=== PATIENT | male | born 1940 | race Caucasian/White ===

== ENCOUNTER 2020-04-15 21:49 | Emergency (ER) | payer MEDICARE ==
[~2020-04-15] VITALS: Ht 180.3 cm; Wt 140.6 kg
[2020-04-15 21:49] VITALS: BP_SYST 159
[2020-04-15] MEDS ORDERED: ONDANSETRON HCL 4 MG/2 ML VIAL IVP ONE (22:00)
[2020-04-15] MEDS ORDERED: MORPHINE 4 MG/ML INJ. SYRINGE IVP ONE (22:00)
[2020-04-15] MEDS ORDERED: NACL 0.9% 1,000 ML IV ONE (22:00)
[2020-04-15 22:51] LABS: BASOPHILS % (AUTO) 0.5 % (0.0-2.0); EOSINOPHILS # (AUTO) 0.1 K/uL (0.0-0.4); EOSINOPHILS % (AUTO) 1.3 % (0.0-4.0); HEMATOCRIT 38.9 % (36-54); LYMPHOCYTES # (AUTO) 1.1 K/uL (1.0-5.5); LYMPHOCYTES % (AUTO) 12.4 % (20.5-51.5); MEAN CORPUSCULAR HEMOGLOBIN 32 pg (27-31); MEAN CORPUSCULAR HGB CONC 33 % (32-36); MEAN CORPUSCULAR VOLUME 97 fL (79.0-98.0); MONOCYTES # (AUTO) 0.7 K/uL (0.0-1.0); MONOCYTES % (AUTO) 7.8 % (1.7-9.3); NEUTROPHILS # (AUTO) 6.7 K/uL (1.8-7.7); PLATELET COUNT (AUTO) 198 K/uL (130-430); RED BLOOD CELL COUNT(AUTO) 4.02 MIL/uL (4.2-6.2); RED CELL DISTRIBUTION WIDTH 13.8 % (9.0-15.0); WHITE BLOOD COUNT (AUTO) 8.6 K/uL (4.8-10.8)
[2020-04-15 23:06] LABS: ANION GAP 8 (5-15); CALCIUM 9.2 mg/dL (8.4-11.0); CHLORIDE 100 mmol/L (98-107); CREATININE 1.32 mg/dL (0.55-1.30); GLUCOSE 376 mg/dL (70-99); POTASSIUM 3.8 mmol/L (3.5-5.1); SODIUM SERUM 134 mmol/L (136-145); UREA NITROGEN, BLOOD 18 mg/dL (8-21)
[2020-04-15 23:11] LABS: ALANINE AMINOTRANSFERASE 21 U/L (12-78); ALBUMIN 3.1 g/dL (3.4-4.8); ASPARTATE AMINOTRANSFERASE 14 U/L (10-37); LIPASE 21 U/L (73-393); TOTAL BILIRUBIN 0.7 mg/dL (0.0-1.0)
[2020-04-15 23:14] LABS: PROTHROMBIN TIME 10.3 SECS (9.5-12.5)
[2020-04-15] MEDS ORDERED: LIDOCAINE VISCOUS 2%, 15 ML UDC MM ONE (23:45)
[2020-04-16 00:26] LABS: BILIRUBIN,URINE NEGATIVE (NEGATIVE); BLOOD, URINE NEGATIVE (NEGATIVE); CLARITY/URINE CLEAR (CLEAR); COLOR,URINE YELLOW (YELLOW); GLUCOSE,URINE 2+ (NEGATIVE); KETONES,URINE NEGATIVE (NEGATIVE); LEUKOCYTE ESTERASE ,URINE NEGATIVE (NEGATIVE); NITRITE, URINE NEGATIVE (NEGATIVE); PROTEIN URINE NEGATIVE (NEGATIVE); UROBILINOGEN,URINE 0.2 (0.2-1.0)
[2020-04-16 00:54] LABS: BACTERIA,URINE FEW /HPF (None Seen); RBC,URINE 0-3 /HPF (0-3); WBC,URINE 0-3 /HPF (0-3)
[2020-04-16] MEDS ORDERED: INSULIN REGULAR, HUMAN 10 UNITS/0.1 ML INJ IVP ONE (01:30)
[2020-04-16] MEDS ORDERED: LIDOCAINE VISCOUS 2%, 15 ML UDC MM ONE (01:45)
[2020-04-16] MEDS ORDERED: LIDOCAINE VISCOUS 2%, 15 ML UDC ONE (02:04)
[2020-04-16 03:00] VITALS: BP_SYST 159
== END 2020-04-16 03:00 | disposition home or self-care (01) ==
LOC: SED 21:49
DX: R33.9 Retention of urine, unspecified (principal); K80.20 Calculus of gallbladder without cholecystitis without obstruction; D64.9 Anemia, unspecified; I10 Essential (primary) hypertension; E11.9 Type 2 diabetes mellitus without complications
CPT/HCPCS: 36415; 51702; 74176; 80053; 81000; 83690; 85025; 85610; 85730; 96372; 96374; 96375; 99285; J1815; J2001; J2270; J2405; J7030; 99284

== ENCOUNTER 2020-05-31 18:13 | Emergency (ER) | payer MEDICARE ==
[~2020-05-31] VITALS: Ht 180.3 cm; Wt 136.1 kg
[2020-05-31 18:16] VITALS: BP_SYST 166
--- NOTE | 2020-05-31 18:16 | NUR ---
Patient to ER bed 03 to gown for evaluation. Side rails up. Report given to JAMIE Ewing
--- NOTE | 2020-05-31 18:19 | NUR ---
Patient brought in complaining of blocked catheter since 1500 today with some bladder pressure. PAin 6/10. No other complaints/injuries per patient or as noted. Will continue to monitor.
--- NOTE | 2020-05-31 18:30 | NUR ---
ER at bedside examining patient.
[2020-05-31] MEDS ORDERED: NS 500 ML IV ONE (19:00)
[2020-05-31 20:23] LABS: WHITE BLOOD COUNT (AUTO) 11.4 K/uL (4.8-10.8)
[2020-05-31 20:24] LABS: HEMATOCRIT 35.3 % (36-54); LYMPHOCYTES % (AUTO) 12.8 % (20.5-51.5); MEAN CORPUSCULAR HEMOGLOBIN 32 pg (27-31); MEAN CORPUSCULAR HGB CONC 34 % (32-36); MEAN CORPUSCULAR VOLUME 94 fL (79.0-98.0); NEUTROPHILS % (AUTO) 78.3 % (40.0-70.0); PLATELET COUNT (AUTO) 251 K/uL (130-430); RED BLOOD CELL COUNT(AUTO) 3.74 MIL/uL (4.2-6.2); RED CELL DISTRIBUTION WIDTH 43.3 % (9.0-15.0)
[2020-05-31 20:25] LABS: BASOPHILS % (AUTO) 0.3 % (0.0-2.0); EOSINOPHILS # (AUTO) 0.1 K/uL (0.0-0.4); EOSINOPHILS % (AUTO) 1.2 % (0.0-4.0); LYMPHOCYTES # (AUTO) 1.5 K/uL (1.0-5.5); MONOCYTES # (AUTO) 0.8 K/uL (0.0-1.0); MONOCYTES % (AUTO) 7.4 % (1.7-9.3); NEUTROPHILS # (AUTO) 8.9 K/uL (1.8-7.7)
[2020-05-31 20:29] LABS: BILIRUBIN,URINE 3+ (NEGATIVE); BLOOD, URINE 3+ (NEGATIVE); CLARITY/URINE TURBID (CLEAR); COLOR,URINE BROWN (YELLOW); LEUKOCYTE ESTERASE ,URINE 2+ (NEGATIVE); NITRITE, URINE POSITIVE (NEGATIVE); PROTEIN URINE 3+ (NEGATIVE)
[2020-05-31 20:30] LABS: ANION GAP 8 (5-15); CALCIUM 8.3 mg/dL (8.4-11.0); CHLORIDE 100 mmol/L (98-107); CREATININE 0.95 mg/dL (0.55-1.30); GLUCOSE 315 mg/dL (70-99); POTASSIUM 3.4 mmol/L (3.5-5.1); SODIUM SERUM 137 mmol/L (136-145); UREA NITROGEN, BLOOD 18 mg/dL (8-21)
[2020-05-31 20:35] LABS: INR 1.1 (0.80-1.20); PROTHROMBIN TIME 11.1 SECS (9.5-12.5)
[2020-05-31 20:41] LABS: KETONES,URINE NEGATIVE (NEGATIVE)
[2020-05-31 20:42] LABS: GLUCOSE,URINE NEGATIVE (NEGATIVE)
[2020-05-31 20:44] LABS: ALANINE AMINOTRANSFERASE 13 U/L (12-78); ALBUMIN 2.4 g/dL (3.4-4.8); ASPARTATE AMINOTRANSFERASE 16 U/L (10-37)
[2020-05-31] MEDS ORDERED: cefTRIAXone 1 GM IVPB PREMIX 50 ML IV ONE (20:45)
--- NOTE | 2020-05-31 22:01 | NUR ---
Patient given written and verbal discharge instructions and verbalizes understanding. ER MD discussed with patient the results and treatment provided. Patient in stable condition. ID arm band removed. IV catheter removed intact and dressing applied, no active bleeding. Rx of MACROBID given. Patient educated on pain management and to follow up with PMD. Pain Scale 0/10. Opportunity for questions provided and answered. Medication side effect fact sheet provided.
[2020-05-31 22:02] LABS: BACTERIA,URINE MODERATE /HPF (None Seen); MUCUS,URINE None Seen /LPF (None Seen); RBC,URINE >100 /HPF (0-3)
[2020-05-31 22:03] VITALS: BP_SYST 162
[2020-05-31 22:03] LABS: URINE AMORPHOUS PHOSPHATES 4+ /HPF (None Seen)
== END 2020-05-31 22:01 | disposition home or self-care (01) ==
LOC: SED 18:13
DX: N30.80 Other cystitis without hematuria (principal)
CPT/HCPCS: 36415; 80053; 81000; 85025; 85610; 85730; 87040; 87086; 96361; 96365; 99284; J0696; J7030

== ENCOUNTER 2020-08-27 08:55 | Emergency (ER) | payer MEDICARE ==
[~2020-08-27] VITALS: Ht 167.6 cm; Wt 104.3 kg
[2020-08-27 09:07] VITALS: BP_SYST 170
--- NOTE | 2020-08-27 09:10 | NUR ---
PLACED IN HALLWAY BED 2, V/S STABLE
--- NOTE | 2020-08-27 09:13 | NUR ---
ER DR. FERMIN AT THE BEDSIDE EVALUATING PT
--- NOTE | 2020-08-27 09:15 | NUR ---
PT BIBA FROM HOME WITH C/O PAIN AND "BLACK" COMING FROM HIS [facility] CATH. PT STATES HE HAS HAD THE CURRENT [facility] CATH X 1MONTH. HX OF PROSTATE CA. PT IS AAOX4, V/S STABLE.
--- NOTE | 2020-08-27 09:20 | NUR ---
OLD C[facility]A CATH REMOVED, BLEEDING NOTED FROM THE URETHRA AND MILKY, CLOUDY URINE DRAINING. PT TOLERATED WELL
--- NOTE | 2020-08-27 09:24 | NUR ---
# 16 FR Cabral catheter with use of sterile technique. Immediate return of 100 cc CLOUDY, MILKY urine noted. Bedside drainage bag placed below level of bladder. Urine sample collected and sent to lab. Pt tolerated procedure WELL. Patient arrived with cabral in place, changed due to standard of practice prior to admission. Patient unable to toilet self.
--- NOTE | 2020-08-27 09:25 | NUR ---
SPECIMEN COLLECTED FROM [facility] AND SENT TO LAB
[2020-08-27] MEDS ORDERED: NACL 0.9% 1,000 ML IV ONE ×2 (09:45→11:45)
[2020-08-27] MEDS ORDERED: cefTRIAXone 1 GM in D5W 50 ML IV ONE (09:45)
--- NOTE | 2020-08-27 09:45 | NUR ---
# 20 gauge angiocath placed to LAC. Use of asceptic technique. Opsite placed over site. Blood return noted. Blood for lab drawn from site. Flushed with 10 cc of normal saline. No evidence of infiltration noted. Patient tolerated well.
[2020-08-27 09:58] LABS: BASOPHILS % (AUTO) 0.4 % (0.0-2.0); EOSINOPHILS % (AUTO) 0.1 % (0.0-4.0); HEMATOCRIT 37.4 % (36-54); HEMOGLOBIN 12.2 g/dL (14.0-18.0); LYMPHOCYTES # (AUTO) 0.1 K/uL (1.0-5.5); LYMPHOCYTES % (AUTO) 1.5 % (20.5-51.5); MEAN CORPUSCULAR HEMOGLOBIN 30 pg (27-31); MEAN CORPUSCULAR HGB CONC 33 % (32-36); MEAN CORPUSCULAR VOLUME 93 fL (79.0-98.0); MONOCYTES % (AUTO) 0.9 % (1.7-9.3); NEUTROPHILS # (AUTO) 3.8 K/uL (1.8-7.7); NEUTROPHILS % (AUTO) 97.1 % (40.0-70.0); PLATELET COUNT (AUTO) 219 K/uL (130-430); RED BLOOD CELL COUNT(AUTO) 4.03 MIL/uL (4.2-6.2); WHITE BLOOD COUNT (AUTO) 3.9 K/uL (4.8-10.8)
[2020-08-27] MEDS ORDERED: cefTRIAXone 1 GM VIAL ONE (10:02)
[2020-08-27 10:18] LABS: INR 1.3 (0.80-1.20); PROTHROMBIN TIME 13.7 SECS (9.5-12.5)
[2020-08-27 10:20] LABS: ANION GAP 17 (5-15); CALCIUM 8.3 mg/dL (8.4-11.0); CHLORIDE 98 mmol/L (98-107); CREATININE 2.03 mg/dL (0.55-1.30); SODIUM SERUM 136 mmol/L (136-145); UREA NITROGEN, BLOOD 32 mg/dL (8-21)
[2020-08-27 10:27] LABS: ALANINE AMINOTRANSFERASE 12 U/L (12-78); ALBUMIN 2.2 g/dL (3.4-4.8); ASPARTATE AMINOTRANSFERASE 15 U/L (10-37); BILIRUBIN,DIRECT 0.6 mg/dL (0.0-0.3); TOTAL BILIRUBIN 1.2 mg/dL (0.0-1.0)
[2020-08-27 10:29] LABS: GLUCOSE 515 mg/dL (70-99)
[2020-08-27 10:36] LABS: BILIRUBIN,URINE NEGATIVE (NEGATIVE); BLOOD, URINE 3+ (NEGATIVE); CLARITY/URINE CLOUDY (CLEAR); GLUCOSE,URINE 1+ (NEGATIVE); KETONES,URINE TRACE (NEGATIVE); LEUKOCYTE ESTERASE ,URINE 2+ (NEGATIVE); NITRITE, URINE NEGATIVE (NEGATIVE); PROTEIN URINE 2+ (NEGATIVE); UROBILINOGEN,URINE 0.2 (0.2-1.0)
[2020-08-27 10:40] LABS: COLOR,URINE YELLOW (YELLOW)
[2020-08-27] MEDS ORDERED: INSULIN NPH/REGULAR 70-30, 100 UNITS/ML, 10 ML VIAL SUBCUT ONE (10:45)
[2020-08-27 10:53] LABS: BACTERIA,URINE MANY /HPF (None Seen); MUCUS,URINE 1+ /LPF (None Seen); RBC,URINE >100 /HPF (0-3); WBC,URINE 80-100 /HPF (0-3)
[2020-08-27] MEDS ORDERED: INSULIN NPH/REGULAR 70-30, 100 UNITS/ML, 10 ML VIAL ONE (11:09)
--- NOTE | 2020-08-27 12:12 | NUR ---
Patient resting quietly. No acute distress noted. Vital signs within normal range.
[2020-08-27 15:25] LABS: ANION GAP 11 (5-15); CALCIUM 7.9 mg/dL (8.4-11.0); CHLORIDE 102 mmol/L (98-107); SODIUM SERUM 138 mmol/L (136-145); UREA NITROGEN, BLOOD 34 mg/dL (8-21)
[2020-08-27 15:32] LABS: GLUCOSE 415 mg/dL (70-99)
[2020-08-27 16:23] VITALS: BP_SYST 165
--- NOTE | 2020-08-27 16:24 | NUR ---
Patient given written and verbal discharge instructions and verbalizes understanding. ER MD discussed with patient the results and treatment provided. Patient in stable condition. ID arm band removed. Rx of Cefdinir given. Patient educated on pain management and to follow up with PMD. Pain Scale 0/10. Opportunity for questions provided and answered. Medication side effect fact sheet provided.
--- NOTE | 2020-08-29 15:01 | NUR ---
RECEIVED +URINE CULTURE FROM LAB, DISCUSSED CASE WITH DR FERMIN, DR VERNON ATTEMPTED TO CALL PT AND LEFT 2 MESSAGES.
== END 2020-08-27 16:23 | disposition home or self-care (01) ==
LOC: SED 08:55
DX: N39.0 Urinary tract infection, site not specified (principal); E86.0 Dehydration; E11.65 Type 2 diabetes mellitus with hyperglycemia
CPT/HCPCS: 36415; 51702; 80048; 80076; 81000; 85025; 85610; 87040; 87086; 96361; 96365; 96372; 99284; J0696; J1815; J7030

== ENCOUNTER 2020-08-29 16:44 | Inpatient (IN) | payer MEDICARE, SELFPAY ==
[~2020-08-29] VITALS: Ht 177.8 cm; Wt 141.7 kg
[2020-08-29 16:44] VITALS: BP_SYST 149
[2020-08-29] MEDS ORDERED: MEROPENEM 500 MG in NS 50 ML IV ONE (17:00)
[2020-08-29] MEDS ORDERED: NACL 0.9% 1,000 ML IV ONE ×3 (17:00→20:00)
[2020-08-29] MEDS ORDERED: MEROPENEM 500 MG VIAL IV ONE (17:40)
[2020-08-29 17:52] LABS: BASOPHILS % (AUTO) 0.2 % (0.0-2.0); EOSINOPHILS # (AUTO) 0.1 K/uL (0.0-0.4); EOSINOPHILS % (AUTO) 0.8 % (0.0-4.0); HEMATOCRIT 36.4 % (36-54); HEMOGLOBIN 11.8 g/dL (14.0-18.0); LYMPHOCYTES # (AUTO) 0.3 K/uL (1.0-5.5); MEAN CORPUSCULAR HEMOGLOBIN 30 pg (27-31); MEAN CORPUSCULAR HGB CONC 33 % (32-36); MEAN CORPUSCULAR VOLUME 93 fL (79.0-98.0); MONOCYTES # (AUTO) 0.8 K/uL (0.0-1.0); MONOCYTES % (AUTO) 4.8 % (1.7-9.3); NEUTROPHILS % (AUTO) 92.2 % (40.0-70.0); PLATELET COUNT (AUTO) 178 K/uL (130-430); RED BLOOD CELL COUNT(AUTO) 3.93 MIL/uL (4.2-6.2); RED CELL DISTRIBUTION WIDTH 15.5 % (9.0-15.0); WHITE BLOOD COUNT (AUTO) 16.2 K/uL (4.8-10.8)
[2020-08-29 18:08] LABS: ANION GAP 13 (5-15); CALCIUM 8.2 mg/dL (8.4-11.0); CHLORIDE 100 mmol/L (98-107); CREATININE 1.69 mg/dL (0.55-1.30); POTASSIUM 3.9 mmol/L (3.5-5.1); SODIUM SERUM 137 mmol/L (136-145); UREA NITROGEN, BLOOD 40 mg/dL (8-21)
[2020-08-29 18:13] LABS: GLUCOSE 467 mg/dL (70-99)
[2020-08-29] MEDS ORDERED: D5/0.45 NS 1,000 ML IV ONE (20:30)
[2020-08-29] MEDS ORDERED: ONDANSETRON HCL 4 MG/2 ML VIAL IVP PRN (23:00)
[2020-08-29] MEDS ORDERED: ACETAMINOPHEN 325 MG TABLET PO PRN (23:00)
[2020-08-29] MEDS ORDERED: LORazepam 2 MG/ML VIAL IVP PRN (23:00)
[2020-08-29] MEDS ORDERED: NALOXONE HCL 0.4 MG/ML AMP (NARCAN) IVP PRN ×2 (23:00)
[2020-08-29] MEDS ORDERED: HYDROcodone/ACETAMIN 10-325 MG TAB PO PRN (23:00)
[2020-08-29] MEDS ORDERED: HYDROcodone/ACETAMIN 5-325 MG TAB (NORCO/ VICODIN) PO PRN (23:00)
[2020-08-29] MEDS ORDERED: *HEPARIN PER PHARMACY XX ONE (23:00)
[2020-08-29] MEDS ORDERED: HEPARIN SODIUM,PORCINE 2000 UNITS/0.4 ML BOLUS IVP PRN (23:15)
[2020-08-29] MEDS ORDERED: HEPARIN SODIUM,PORCINE 3000 UNITS/0.6 ML BOLUS IVP PRN (23:15)
[2020-08-29] MEDS ORDERED: HEPARIN SODIUM,PORCINE 5,000 UNITS/ML VIAL IV ONE (23:30)
[2020-08-30] MEDS: MEROPENEM 500 MG in NS 50 ML IV SCH ×2 (00:40→09:30)
[2020-08-30] MEDS ORDERED: DILTIAZEM HCL 25 MG/5 ML VIAL IVP ONE (00:45)
[2020-08-30] MEDS: INSULIN REGULAR, HUMAN 100 UNITS/ML, 10 ML VIAL (humuLIN R) SUBCUT PRN ×6 (00:46→21:09)
[2020-08-30] MEDS ORDERED: DILTIAZEM HCL 125 MG/25 ML VIAL IV ONE ×2 (00:57→19:50)
[2020-08-30 01:18] LABS: INR 1.2 (0.80-1.20); PROTHROMBIN TIME 11.9 SECS (9.5-12.5)
[2020-08-30] MEDS: HEPARIN 25,000 UNITS in 250 ML PREMIX IV PRN (01:37)
[2020-08-30] MEDS ORDERED: INSULIN REGULAR, HUMAN 10 UNITS/0.1 ML INJ ONE ×3 (04:34→21:02)
[2020-08-30 07:10] LABS: HEMATOCRIT 34.7 % (36-54); HEMOGLOBIN 11.4 g/dL (14.0-18.0); MEAN CORPUSCULAR HEMOGLOBIN 30 pg (27-31); MEAN CORPUSCULAR HGB CONC 33 % (32-36); MEAN CORPUSCULAR VOLUME 92 fL (79.0-98.0); PLATELET COUNT (AUTO) 148 K/uL (130-430); RED BLOOD CELL COUNT(AUTO) 3.79 MIL/uL (4.2-6.2); RED CELL DISTRIBUTION WIDTH 15.5 % (9.0-15.0); WHITE BLOOD COUNT (AUTO) 8.3 K/uL (4.8-10.8)
[2020-08-30 07:47] LABS: ALANINE AMINOTRANSFERASE 15 U/L (12-78); ALBUMIN 1.4 g/dL (3.4-4.8); ANION GAP 11 (5-15); ASPARTATE AMINOTRANSFERASE 24 U/L (10-37); CALCIUM 7.9 mg/dL (8.4-11.0); CHLORIDE 105 mmol/L (98-107); GLUCOSE 387 mg/dL (70-99); PHOSPHORUS 1.8 mg/dL (2.7-4.5); SODIUM SERUM 140 mmol/L (136-145); TOTAL BILIRUBIN 0.7 mg/dL (0.0-1.0); UREA NITROGEN, BLOOD 40 mg/dL (8-21)
[2020-08-30] MEDS ORDERED: D5W 1,000 ML IV PRN (08:00)
[2020-08-30] MEDS ORDERED: DEXTROSE 50%-WATER 50 ML DISP.SYRIN IVP PRN (08:00)
[2020-08-30] MEDS ORDERED: GLUCOSE (DEXTROSE) ORAL GEL -Adults PO PRN (08:00)
[2020-08-30] MEDS ORDERED: ONDANSETRON HCL 4 MG/2 ML VIAL IVP PRN (09:00)
[2020-08-30] MEDS ORDERED: NALOXONE HCL 0.4 MG/ML AMP (NARCAN) IVP PRN ×2 (09:00)
[2020-08-30] MEDS ORDERED: HYDROcodone/ACETAMIN 10-325 MG TAB PO PRN (09:00)
[2020-08-30] MEDS ORDERED: HYDROcodone/ACETAMIN 5-325 MG TAB (NORCO/ VICODIN) PO PRN (09:00)
[2020-08-30] MEDS ORDERED: LORazepam 2 MG/ML VIAL IVP PRN (09:00)
[2020-08-30] MEDS ORDERED: ACETAMINOPHEN 325 MG TABLET PO PRN (09:00)
[2020-08-30 09:38] LABS: C-REACTIVE PROTEIN QUANT 51.1 mg/dL (0-0.5)
[2020-08-30] MEDS: KCL 20 mEq in D5/0.45NS 1000mL 1,000 ML IV SCH ×2 (10:30→20:58)
[2020-08-30] MEDS ORDERED: DIGOXIN 0.5 MG/2 ML AMP IVP ONE (10:45)
[2020-08-30 12:07] LABS: ERYTHROCYTE SEDIMENTATION RATE 92 MM/HR (0-15)
[2020-08-30] MEDS ORDERED: MEROPENEM 500 MG in NS 50 ML IV SCH (14:00)
[2020-08-30 14:03] LABS: BAND % (MANUAL) 9 % (0-6); BASOPHILS % (MANUAL) 0 % (0-2); EOSINOPHILS % (MANUAL) 0 % (0-7); LYMPHOCYTES % (MANUAL) 2 % (20-46); MONOCYTES % (MANUAL) 1 % (0-11)
[2020-08-30 19:00] VITALS: BP_SYST 158
[2020-08-30 20:00] VITALS: BP_SYST 154
[2020-08-30] MEDS: CEFTAZIDIME/AVIBACTAM 0.94 GM in NS 100 ML IV SCH (20:51)
[2020-08-30 21:00] VITALS: BP_SYST 170
[2020-08-30] MEDS ORDERED: INSULIN GLARGINE 100 UNITS/ML 10 ML VIAL SUBCUT ONE (21:30)
[2020-08-30 22:00] VITALS: BP_SYST 143
[2020-08-30 23:00] VITALS: BP_SYST 157
[2020-08-31] VITALS (8 sets, daily range): BP systolic 135–166
[2020-08-31] MEDS: HEPARIN 25,000 UNITS in 250 ML PREMIX IV PRN (03:10)
[2020-08-31 05:39] LABS: BASOPHILS # (AUTO) 0.1 K/uL (0.0-0.2); EOSINOPHILS # (AUTO) 0.2 K/uL (0.0-0.4); MONOCYTES # (AUTO) 0.9 K/uL (0.0-1.0)
[2020-08-31 05:46] LABS: LYMPHOCYTES # (AUTO) 0.8 K/uL (1.0-5.5); PLATELET COUNT (AUTO) 148 K/uL (130-430)
[2020-08-31] MEDS: KCL 20 mEq in D5/0.45NS 1000mL 1,000 ML IV SCH (05:47)
[2020-08-31 05:54] LABS: BASOPHILS % (AUTO) 0.7 % (0.0-2.0); EOSINOPHILS % (AUTO) 0.9 % (0.0-4.0); HEMOGLOBIN 10.3 g/dL (14.0-18.0); LYMPHOCYTES % (AUTO) 4.9 % (20.5-51.5); MEAN CORPUSCULAR HEMOGLOBIN 30 pg (27-31); MEAN CORPUSCULAR HGB CONC 33 % (32-36); MEAN CORPUSCULAR VOLUME 91 fL (79.0-98.0); MONOCYTES % (AUTO) 5.4 % (1.7-9.3); NEUTROPHILS # (AUTO) 14.9 K/uL (1.8-7.7); NEUTROPHILS % (AUTO) 88.1 % (40.0-70.0); RED BLOOD CELL COUNT(AUTO) 3.39 MIL/uL (4.2-6.2); RED CELL DISTRIBUTION WIDTH 15.1 % (9.0-15.0)
[2020-08-31] MEDS: INSULIN REGULAR, HUMAN 100 UNITS/ML, 10 ML VIAL (humuLIN R) SUBCUT PRN ×4 (07:23→23:23)
[2020-08-31 07:29] LABS: ALANINE AMINOTRANSFERASE 22 U/L (12-78); ALBUMIN 1.2 g/dL (3.4-4.8); ANION GAP 10 (5-15); ASPARTATE AMINOTRANSFERASE 30 U/L (10-37); CALCIUM 8.3 mg/dL (8.4-11.0); CHLORIDE 102 mmol/L (98-107); CREATININE 1.36 mg/dL (0.55-1.30); PHOSPHORUS 2.3 mg/dL (2.7-4.5); POTASSIUM 3.4 mmol/L (3.5-5.1); SODIUM SERUM 135 mmol/L (136-145); TOTAL BILIRUBIN 0.5 mg/dL (0.0-1.0); UREA NITROGEN, BLOOD 39 mg/dL (8-21)
[2020-08-31 07:35] LABS: GLUCOSE 423 mg/dL (70-99)
[2020-08-31] MEDS: KCL 20 mEq in 100 mL (PREMIX) 100 ML IV SCH ×2 (09:00→11:00)
[2020-08-31] MEDS: INSULIN NPH 100 UNITS/ML 10 ML VIAL SUBCUT SCH ×2 (10:45→23:22)
[2020-08-31] MEDS: INSULIN GLARGINE 100 UNITS/ML 10 ML VIAL SUBCUT SCH (10:45)
[2020-08-31] MEDS: CEFTAZIDIME/AVIBACTAM 0.94 GM in NS 100 ML IV SCH ×2 (12:00→23:13)
[2020-08-31] MEDS: METOPROLOL TARTRATE 25 MG TABLET PO SCH ×2 (14:19→23:13)
[2020-08-31] MEDS: DILTIAZEM HCL 30 MG TABLET PO SCH (17:26)
[2020-08-31] MEDS ORDERED: POTASSIUM CHLORIDE 20 MEQ TAB.PRT.SR PO ONE (18:15)
[2020-08-31] MEDS: ATORVASTATIN 20 MG TABLET PO SCH (23:13)
[2020-09-01] VITALS: BP_SYST 166
[2020-09-01] MEDS: HEPARIN 25,000 UNITS in 250 ML PREMIX IV PRN ×2 (01:08→10:04)
[2020-09-01] MEDS: DILTIAZEM HCL 30 MG TABLET PO SCH ×3 (05:31→21:49)
[2020-09-01] MEDS: KCL 20 mEq in D5/0.45NS 1000mL 1,000 ML IV SCH ×2 (05:32→13:29)
[2020-09-01] MEDS: INSULIN REGULAR, HUMAN 100 UNITS/ML, 10 ML VIAL (humuLIN R) SUBCUT PRN ×3 (06:16→17:49)
[2020-09-01 06:33] LABS: BASOPHILS # (AUTO) 0.1 K/uL (0.0-0.2); BASOPHILS % (AUTO) 0.3 % (0.0-2.0); EOSINOPHILS # (AUTO) 0.3 K/uL (0.0-0.4); EOSINOPHILS % (AUTO) 1.4 % (0.0-4.0); HEMATOCRIT 34.3 % (36-54); HEMOGLOBIN 11.2 g/dL (14.0-18.0); LYMPHOCYTES # (AUTO) 1.4 K/uL (1.0-5.5); LYMPHOCYTES % (AUTO) 6.9 % (20.5-51.5); MEAN CORPUSCULAR HEMOGLOBIN 30 pg (27-31); MEAN CORPUSCULAR HGB CONC 33 % (32-36); MEAN CORPUSCULAR VOLUME 91 fL (79.0-98.0); MONOCYTES # (AUTO) 1.4 K/uL (0.0-1.0); MONOCYTES % (AUTO) 6.5 % (1.7-9.3); NEUTROPHILS # (AUTO) 17.5 K/uL (1.8-7.7); NEUTROPHILS % (AUTO) 84.9 % (40.0-70.0); PLATELET COUNT (AUTO) 177 K/uL (130-430); RED BLOOD CELL COUNT(AUTO) 3.78 MIL/uL (4.2-6.2); RED CELL DISTRIBUTION WIDTH 15.2 % (9.0-15.0); WHITE BLOOD COUNT (AUTO) 20.7 K/uL (4.8-10.8)
[2020-09-01 08:45] VITALS: BP_SYST 148
[2020-09-01 08:48] LABS: ANION GAP 8 (5-15); CALCIUM 8.5 mg/dL (8.4-11.0); CHLORIDE 103 mmol/L (98-107); CREATININE 1.34 mg/dL (0.55-1.30); GLUCOSE 193 mg/dL (70-99); PHOSPHORUS 2.9 mg/dL (2.7-4.5); POTASSIUM 3.8 mmol/L (3.5-5.1); SODIUM SERUM 137 mmol/L (136-145); UREA NITROGEN, BLOOD 30 mg/dL (8-21)
[2020-09-01] MEDS: CEFTAZIDIME/AVIBACTAM 0.94 GM in NS 100 ML IV SCH ×2 (09:42→21:56)
[2020-09-01] MEDS: METOPROLOL TARTRATE 25 MG TABLET PO SCH ×2 (09:46→21:48)
[2020-09-01 10:04] LABS: ERYTHROCYTE SEDIMENTATION RATE 90 MM/HR (0-15)
[2020-09-01] MEDS: INSULIN NPH 100 UNITS/ML 10 ML VIAL SUBCUT SCH ×2 (10:04→22:07)
[2020-09-01] MEDS: INSULIN GLARGINE 100 UNITS/ML 10 ML VIAL SUBCUT SCH (10:33)
[2020-09-01 12:00] VITALS: BP_SYST 154
[2020-09-01 16:00] VITALS: BP_SYST 153
[2020-09-01] MEDS: ATORVASTATIN 20 MG TABLET PO SCH (21:50)
[2020-09-01] MEDS: APIXABAN 2.5 MG TABLET PO SCH (22:08)
[2020-09-01 22:48] VITALS: BP_SYST 147
[2020-09-01 22:57] VITALS: BP_SYST 147
[2020-09-02] MEDS: KCL 20 mEq in D5/0.45NS 1000mL 1,000 ML IV SCH ×2 (03:39→17:30)
[2020-09-02] MEDS: DILTIAZEM HCL 30 MG TABLET PO SCH ×3 (06:10→23:51)
[2020-09-02] MEDS: INSULIN REGULAR, HUMAN 100 UNITS/ML, 10 ML VIAL (humuLIN R) SUBCUT PRN ×3 (06:17→16:55)
[2020-09-02 07:13] LABS: BASOPHILS % (AUTO) 0.1 % (0.0-2.0); EOSINOPHILS # (AUTO) 0.3 K/uL (0.0-0.4); EOSINOPHILS % (AUTO) 1.5 % (0.0-4.0); HEMOGLOBIN 10.8 g/dL (14.0-18.0); LYMPHOCYTES # (AUTO) 1.1 K/uL (1.0-5.5); LYMPHOCYTES % (AUTO) 6.4 % (20.5-51.5); MEAN CORPUSCULAR HEMOGLOBIN 30 pg (27-31); MEAN CORPUSCULAR HGB CONC 33 % (32-36); MEAN CORPUSCULAR VOLUME 90 fL (79.0-98.0); MONOCYTES # (AUTO) 1.2 K/uL (0.0-1.0); MONOCYTES % (AUTO) 7.4 % (1.7-9.3); NEUTROPHILS # (AUTO) 14.2 K/uL (1.8-7.7); NEUTROPHILS % (AUTO) 84.6 % (40.0-70.0); PLATELET COUNT (AUTO) 175 K/uL (130-430); RED BLOOD CELL COUNT(AUTO) 3.65 MIL/uL (4.2-6.2); RED CELL DISTRIBUTION WIDTH 15.2 % (9.0-15.0); WHITE BLOOD COUNT (AUTO) 16.8 K/uL (4.8-10.8)
[2020-09-02 08:00] VITALS: BP_SYST 141
[2020-09-02 08:07] LABS: ANION GAP 9 (5-15); CALCIUM 7.9 mg/dL (8.4-11.0); CHLORIDE 105 mmol/L (98-107); GLUCOSE 214 mg/dL (70-99); POTASSIUM 3.6 mmol/L (3.5-5.1); SODIUM SERUM 139 mmol/L (136-145); UREA NITROGEN, BLOOD 25 mg/dL (8-21)
[2020-09-02 08:24] LABS: CREATININE 1.01 mg/dL (0.55-1.30)
[2020-09-02 08:44] LABS: PHOSPHORUS 2.9 mg/dL (2.7-4.5)
[2020-09-02 09:23] LABS: C-REACTIVE PROTEIN QUANT 25.2 mg/dL (0-0.5)
[2020-09-02] MEDS: CEFTAZIDIME/AVIBACTAM 0.94 GM in NS 100 ML IV SCH ×2 (09:50→23:54)
[2020-09-02] MEDS: METOPROLOL TARTRATE 25 MG TABLET PO SCH ×2 (09:51→23:57)
[2020-09-02] MEDS: APIXABAN 2.5 MG TABLET PO SCH ×2 (09:57→23:53)
[2020-09-02] MEDS: INSULIN GLARGINE 100 UNITS/ML 10 ML VIAL SUBCUT SCH (09:58)
[2020-09-02] MEDS: INSULIN NPH 100 UNITS/ML 10 ML VIAL SUBCUT SCH (09:59)
[2020-09-02 12:00] VITALS: BP_SYST 148
[2020-09-02 12:04] LABS: ERYTHROCYTE SEDIMENTATION RATE 94 MM/HR (0-15)
[2020-09-02 15:47] VITALS: BP_SYST 155
[2020-09-02 20:00] VITALS: BP_SYST 145
[2020-09-02] MEDS: ATORVASTATIN 20 MG TABLET PO SCH (23:54)
[2020-09-03] MEDS: INSULIN NPH 100 UNITS/ML 10 ML VIAL SUBCUT SCH (00:04)
[2020-09-03 06:27] LABS: BASOPHILS % (AUTO) 0.3 % (0.0-2.0); EOSINOPHILS # (AUTO) 0.3 K/uL (0.0-0.4); EOSINOPHILS % (AUTO) 1.5 % (0.0-4.0); HEMATOCRIT 31.9 % (36-54); HEMOGLOBIN 10.5 g/dL (14.0-18.0); LYMPHOCYTES # (AUTO) 1.1 K/uL (1.0-5.5); LYMPHOCYTES % (AUTO) 5.9 % (20.5-51.5); MEAN CORPUSCULAR HEMOGLOBIN 30 pg (27-31); MEAN CORPUSCULAR HGB CONC 33 % (32-36); MEAN CORPUSCULAR VOLUME 90 fL (79.0-98.0); MONOCYTES # (AUTO) 1.2 K/uL (0.0-1.0); MONOCYTES % (AUTO) 6.3 % (1.7-9.3); NEUTROPHILS # (AUTO) 16.7 K/uL (1.8-7.7); PLATELET COUNT (AUTO) 250 K/uL (130-430); RED BLOOD CELL COUNT(AUTO) 3.55 MIL/uL (4.2-6.2); RED CELL DISTRIBUTION WIDTH 15.5 % (9.0-15.0); WHITE BLOOD COUNT (AUTO) 19.4 K/uL (4.8-10.8)
[2020-09-03] MEDS: KCL 20 mEq in D5/0.45NS 1000mL 1,000 ML IV SCH (07:11)
[2020-09-03 07:44] LABS: ALANINE AMINOTRANSFERASE 28 U/L (12-78); ALBUMIN 1.2 g/dL (3.4-4.8); ANION GAP 8 (5-15); ASPARTATE AMINOTRANSFERASE 55 U/L (10-37); CALCIUM 8.1 mg/dL (8.4-11.0); CHLORIDE 105 mmol/L (98-107); CREATININE 1.01 mg/dL (0.55-1.30); GLUCOSE 148 mg/dL (70-99); PHOSPHORUS 3.1 mg/dL (2.7-4.5); POTASSIUM 3.4 mmol/L (3.5-5.1); SODIUM SERUM 140 mmol/L (136-145); TOTAL BILIRUBIN 0.9 mg/dL (0.0-1.0); UREA NITROGEN, BLOOD 18 mg/dL (8-21)
[2020-09-03] MEDS: DILTIAZEM HCL 30 MG TABLET PO SCH ×3 (07:46→21:59)
[2020-09-03 08:08] LABS: ERYTHROCYTE SEDIMENTATION RATE 98 MM/HR (0-15)
[2020-09-03 08:11] VITALS: BP_SYST 163
[2020-09-03] MEDS: CEFTAZIDIME/AVIBACTAM 0.94 GM in NS 100 ML IV SCH (08:27)
[2020-09-03] MEDS: METOPROLOL TARTRATE 25 MG TABLET PO SCH (08:28)
[2020-09-03] MEDS: APIXABAN 2.5 MG TABLET PO SCH ×2 (08:28→21:53)
[2020-09-03] MEDS: INSULIN GLARGINE 100 UNITS/ML 10 ML VIAL SUBCUT SCH (08:30)
[2020-09-03 12:00] VITALS: BP_SYST 158
[2020-09-03] MEDS: ERTAPENEM SODIUM 1 GM in NS 50 ML IV SCH (12:57)
[2020-09-03] MEDS: NORMAL SALINE 5 ML DISP.SYRIN IVF SCH ×2 (14:09→22:00)
[2020-09-03 16:00] VITALS: BP_SYST 151
[2020-09-03 20:00] VITALS: BP_SYST 158
[2020-09-03] MEDS: METOPROLOL TARTRATE 50 MG TABLET PO SCH (21:51)
[2020-09-03] MEDS: ATORVASTATIN 20 MG TABLET PO SCH (21:52)
[2020-09-04] VITALS (7 sets, daily range): BP systolic 141–159
[2020-09-04] MEDS: DILTIAZEM HCL 30 MG TABLET PO SCH ×3 (05:34→23:25)
[2020-09-04] MEDS: NORMAL SALINE 5 ML DISP.SYRIN IVF SCH ×3 (06:00→23:26)
[2020-09-04 07:15] LABS: BASOPHILS # (AUTO) 0.1 K/uL (0.0-0.2); BASOPHILS % (AUTO) 0.4 % (0.0-2.0); EOSINOPHILS # (AUTO) 0.3 K/uL (0.0-0.4); EOSINOPHILS % (AUTO) 1.6 % (0.0-4.0); HEMATOCRIT 31.3 % (36-54); HEMOGLOBIN 10.4 g/dL (14.0-18.0); LYMPHOCYTES # (AUTO) 1.1 K/uL (1.0-5.5); LYMPHOCYTES % (AUTO) 5.9 % (20.5-51.5); MEAN CORPUSCULAR HEMOGLOBIN 30 pg (27-31); MEAN CORPUSCULAR HGB CONC 33 % (32-36); MEAN CORPUSCULAR VOLUME 90 fL (79.0-98.0); MONOCYTES % (AUTO) 5.2 % (1.7-9.3); NEUTROPHILS # (AUTO) 16.1 K/uL (1.8-7.7); NEUTROPHILS % (AUTO) 86.9 % (40.0-70.0); PLATELET COUNT (AUTO) 321 K/uL (130-430); RED BLOOD CELL COUNT(AUTO) 3.48 MIL/uL (4.2-6.2); RED CELL DISTRIBUTION WIDTH 15.7 % (9.0-15.0); WHITE BLOOD COUNT (AUTO) 18.5 K/uL (4.8-10.8)
[2020-09-04 08:26] LABS: ANION GAP 5 (5-15); CALCIUM 7.3 mg/dL (8.4-11.0); CHLORIDE 104 mmol/L (98-107); CREATININE 0.82 mg/dL (0.55-1.30); GLUCOSE 89 mg/dL (70-99); POTASSIUM 3.2 mmol/L (3.5-5.1); SODIUM SERUM 136 mmol/L (136-145); UREA NITROGEN, BLOOD 12 mg/dL (8-21)
[2020-09-04 08:54] LABS: ERYTHROCYTE SEDIMENTATION RATE 106 MM/HR (0-15)
[2020-09-04] MEDS: INSULIN GLARGINE 100 UNITS/ML 10 ML VIAL SUBCUT SCH (09:13)
[2020-09-04] MEDS: METOPROLOL TARTRATE 50 MG TABLET PO SCH ×2 (09:16→20:42)
[2020-09-04] MEDS: APIXABAN 2.5 MG TABLET PO SCH ×2 (09:19→20:43)
[2020-09-04] MEDS: ERTAPENEM SODIUM 1 GM in NS 50 ML IV SCH (11:28)
[2020-09-04] MEDS: INSULIN REGULAR, HUMAN 100 UNITS/ML, 10 ML VIAL (humuLIN R) SUBCUT PRN (11:28)
[2020-09-04] MEDS: ATORVASTATIN 20 MG TABLET PO SCH (20:42)
[2020-09-05] VITALS (7 sets, daily range): BP systolic 144–159
[2020-09-05] MEDS: NORMAL SALINE 5 ML DISP.SYRIN IVF SCH ×3 (06:22→21:50)
[2020-09-05] MEDS: DILTIAZEM HCL 30 MG TABLET PO SCH ×3 (06:22→21:53)
[2020-09-05] MEDS: APIXABAN 2.5 MG TABLET PO SCH ×2 (08:30→21:52)
[2020-09-05] MEDS: INSULIN GLARGINE 100 UNITS/ML 10 ML VIAL SUBCUT SCH (08:34)
[2020-09-05] MEDS: METOPROLOL TARTRATE 50 MG TABLET PO SCH ×2 (08:35→21:50)
[2020-09-05 10:12] LABS: BASOPHILS # (AUTO) 0.1 K/uL (0.0-0.2); BASOPHILS % (AUTO) 0.8 % (0.0-2.0); EOSINOPHILS # (AUTO) 0.3 K/uL (0.0-0.4); EOSINOPHILS % (AUTO) 2.3 % (0.0-4.0); HEMATOCRIT 29.1 % (36-54); HEMOGLOBIN 9.5 g/dL (14.0-18.0); LYMPHOCYTES % (AUTO) 7.2 % (20.5-51.5); MEAN CORPUSCULAR HEMOGLOBIN 30 pg (27-31); MEAN CORPUSCULAR HGB CONC 33 % (32-36); MEAN CORPUSCULAR VOLUME 90 fL (79.0-98.0); MONOCYTES # (AUTO) 0.9 K/uL (0.0-1.0); MONOCYTES % (AUTO) 6.2 % (1.7-9.3); NEUTROPHILS % (AUTO) 83.5 % (40.0-70.0); PLATELET COUNT (AUTO) 407 K/uL (130-430); RED BLOOD CELL COUNT(AUTO) 3.22 MIL/uL (4.2-6.2); RED CELL DISTRIBUTION WIDTH 15.2 % (9.0-15.0); WHITE BLOOD COUNT (AUTO) 14.4 K/uL (4.8-10.8)
[2020-09-05 10:15] LABS: ANION GAP 7 (5-15); CALCIUM 7.2 mg/dL (8.4-11.0); CHLORIDE 101 mmol/L (98-107); CREATININE 0.92 mg/dL (0.55-1.30); FREE T4 (FREE THYROXINE) 0.8 ng/dL (0.6-1.6); GLUCOSE 239 mg/dL (70-99); PHOSPHORUS 3.3 mg/dL (2.7-4.5); POTASSIUM 3.4 mmol/L (3.5-5.1); SODIUM SERUM 137 mmol/L (136-145); THYROID STIMULATING HORMONE 2.41 uIu/mL (0.34-4.82); UREA NITROGEN, BLOOD 10 mg/dL (8-21)
[2020-09-05 10:49] LABS: ERYTHROCYTE SEDIMENTATION RATE 111 MM/HR (0-15)
[2020-09-05] MEDS: ALBUTEROL SULFATE 0.083% 2.5 MG/3 ML VIAL.NEB INH SCH ×4 (11:00→23:00)
[2020-09-05] MEDS: IPRATROPIUM BROM 0.5 MG/2.5 ML VIAL.NEB (ATROVENT) INH SCH ×4 (11:00→23:00)
[2020-09-05] MEDS: INSULIN REGULAR, HUMAN 100 UNITS/ML, 10 ML VIAL (humuLIN R) SUBCUT PRN ×2 (12:06→16:52)
[2020-09-05] MEDS: ERTAPENEM SODIUM 1 GM in NS 50 ML IV SCH (12:09)
[2020-09-05] MEDS: ATORVASTATIN 20 MG TABLET PO SCH (21:49)
[2020-09-06 00:29] VITALS: BP_SYST 153
[2020-09-06] MEDS: ALBUTEROL SULFATE 0.083% 2.5 MG/3 ML VIAL.NEB INH SCH ×6 (03:00→23:00)
[2020-09-06] MEDS: IPRATROPIUM BROM 0.5 MG/2.5 ML VIAL.NEB (ATROVENT) INH SCH ×6 (03:00→23:00)
[2020-09-06] MEDS: NORMAL SALINE 5 ML DISP.SYRIN IVF SCH ×3 (06:05→21:17)
[2020-09-06] MEDS: DILTIAZEM HCL 30 MG TABLET PO SCH ×3 (06:05→21:16)
[2020-09-06 07:00] LABS: BASOPHILS # (AUTO) 0.1 K/uL (0.0-0.2); BASOPHILS % (AUTO) 0.7 % (0.0-2.0); EOSINOPHILS # (AUTO) 0.3 K/uL (0.0-0.4); EOSINOPHILS % (AUTO) 2.5 % (0.0-4.0); HEMATOCRIT 34.1 % (36-54); LYMPHOCYTES % (AUTO) 7.1 % (20.5-51.5); MEAN CORPUSCULAR HEMOGLOBIN 29 pg (27-31); MEAN CORPUSCULAR HGB CONC 32 % (32-36); MEAN CORPUSCULAR VOLUME 91 fL (79.0-98.0); MONOCYTES # (AUTO) 0.9 K/uL (0.0-1.0); MONOCYTES % (AUTO) 6.3 % (1.7-9.3); NEUTROPHILS # (AUTO) 11.6 K/uL (1.8-7.7); NEUTROPHILS % (AUTO) 83.4 % (40.0-70.0); PLATELET COUNT (AUTO) 496 K/uL (130-430); RED BLOOD CELL COUNT(AUTO) 3.77 MIL/uL (4.2-6.2); RED CELL DISTRIBUTION WIDTH 15.6 % (9.0-15.0); WHITE BLOOD COUNT (AUTO) 13.9 K/uL (4.8-10.8)
[2020-09-06 07:15] LABS: ANION GAP 7 (5-15); CALCIUM 7.2 mg/dL (8.4-11.0); CHLORIDE 99 mmol/L (98-107); GLUCOSE 99 mg/dL (70-99); POTASSIUM 3.6 mmol/L (3.5-5.1); SODIUM SERUM 134 mmol/L (136-145); UREA NITROGEN, BLOOD 10 mg/dL (8-21)
[2020-09-06 08:15] VITALS: BP_SYST 148
[2020-09-06 08:19] LABS: C-REACTIVE PROTEIN QUANT 16.3 mg/dL (0-0.5)
[2020-09-06 09:36] LABS: ERYTHROCYTE SEDIMENTATION RATE 95 MM/HR (0-15)
[2020-09-06] MEDS: METOPROLOL TARTRATE 50 MG TABLET PO SCH ×2 (09:55→21:17)
[2020-09-06] MEDS: INSULIN GLARGINE 100 UNITS/ML 10 ML VIAL SUBCUT SCH (09:57)
[2020-09-06] MEDS: APIXABAN 2.5 MG TABLET PO SCH ×2 (09:58→21:16)
[2020-09-06] MEDS: ERTAPENEM SODIUM 1 GM in NS 50 ML IV SCH (11:46)
[2020-09-06 12:00] VITALS: BP_SYST 142
[2020-09-06 12:48] VITALS: BP_SYST 142
[2020-09-06 16:44] VITALS: BP_SYST 156
[2020-09-06 20:00] VITALS: BP_SYST 159
[2020-09-06] MEDS: ATORVASTATIN 20 MG TABLET PO SCH (21:17)
[2020-09-07 02:05] VITALS: BP_SYST 149
[2020-09-07] MEDS: ALBUTEROL SULFATE 0.083% 2.5 MG/3 ML VIAL.NEB INH SCH ×6 (03:00→23:00)
[2020-09-07] MEDS: IPRATROPIUM BROM 0.5 MG/2.5 ML VIAL.NEB (ATROVENT) INH SCH ×6 (03:00→23:00)
[2020-09-07] MEDS: NORMAL SALINE 5 ML DISP.SYRIN IVF SCH ×3 (06:16→21:00)
[2020-09-07] MEDS: DILTIAZEM HCL 30 MG TABLET PO SCH ×3 (06:16→21:02)
[2020-09-07 07:51] LABS: BASOPHILS # (AUTO) 0.1 K/uL (0.0-0.2); EOSINOPHILS # (AUTO) 0.3 K/uL (0.0-0.4); EOSINOPHILS % (AUTO) 2.3 % (0.0-4.0); HEMATOCRIT 29.1 % (36-54); HEMOGLOBIN 9.9 g/dL (14.0-18.0); LYMPHOCYTES # (AUTO) 1.4 K/uL (1.0-5.5); LYMPHOCYTES % (AUTO) 10.5 % (20.5-51.5); MEAN CORPUSCULAR HEMOGLOBIN 30 pg (27-31); MEAN CORPUSCULAR HGB CONC 34 % (32-36); MONOCYTES # (AUTO) 0.9 K/uL (0.0-1.0); MONOCYTES % (AUTO) 6.7 % (1.7-9.3); NEUTROPHILS # (AUTO) 10.8 K/uL (1.8-7.7); NEUTROPHILS % (AUTO) 79.5 % (40.0-70.0); PLATELET COUNT (AUTO) 566 K/uL (130-430); RED BLOOD CELL COUNT(AUTO) 3.27 MIL/uL (4.2-6.2); RED CELL DISTRIBUTION WIDTH 15.6 % (9.0-15.0); WHITE BLOOD COUNT (AUTO) 13.6 K/uL (4.8-10.8)
[2020-09-07 08:00] VITALS: BP_SYST 155
[2020-09-07 08:16] LABS: ALANINE AMINOTRANSFERASE 19 U/L (12-78); ANION GAP 3 (5-15); ASPARTATE AMINOTRANSFERASE 31 U/L (10-37); CALCIUM 7.2 mg/dL (8.4-11.0); CHLORIDE 101 mmol/L (98-107); GLUCOSE 82 mg/dL (70-99); PHOSPHORUS 3.3 mg/dL (2.7-4.5); POTASSIUM 3.6 mmol/L (3.5-5.1); SODIUM SERUM 134 mmol/L (136-145); TOTAL BILIRUBIN 0.4 mg/dL (0.0-1.0); UREA NITROGEN, BLOOD 9 mg/dL (8-21)
[2020-09-07 08:27] LABS: MEAN CORPUSCULAR VOLUME 89 fL (79.0-98.0)
[2020-09-07] MEDS: APIXABAN 2.5 MG TABLET PO SCH ×2 (08:37→21:05)
[2020-09-07] MEDS: METOPROLOL TARTRATE 50 MG TABLET PO SCH ×2 (08:39→21:03)
[2020-09-07] MEDS: INSULIN GLARGINE 100 UNITS/ML 10 ML VIAL SUBCUT SCH (08:41)
[2020-09-07 09:18] LABS: ERYTHROCYTE SEDIMENTATION RATE 102 MM/HR (0-15)
[2020-09-07 09:24] LABS: C-REACTIVE PROTEIN QUANT 15.4 mg/dL (0-0.5)
[2020-09-07] MEDS: ERTAPENEM SODIUM 1 GM in NS 50 ML IV SCH (11:50)
[2020-09-07] MEDS: INSULIN REGULAR, HUMAN 100 UNITS/ML, 10 ML VIAL (humuLIN R) SUBCUT PRN (11:52)
[2020-09-07 12:54] VITALS: BP_SYST 143
[2020-09-07 16:00] VITALS: BP_SYST 148
[2020-09-07] MEDS: ATORVASTATIN 20 MG TABLET PO SCH (21:02)
[2020-09-07 22:02] VITALS: BP_SYST 159
[2020-09-08] VITALS: BP_SYST 131
[2020-09-08] MEDS: IPRATROPIUM BROM 0.5 MG/2.5 ML VIAL.NEB (ATROVENT) INH SCH ×6 (03:00→23:00)
[2020-09-08] MEDS: ALBUTEROL SULFATE 0.083% 2.5 MG/3 ML VIAL.NEB INH SCH ×6 (03:00→23:00)
[2020-09-08] MEDS: NORMAL SALINE 5 ML DISP.SYRIN IVF SCH ×3 (05:57→21:01)
[2020-09-08] MEDS: DILTIAZEM HCL 30 MG TABLET PO SCH ×3 (06:48→21:29)
[2020-09-08 07:59] LABS: BASOPHILS # (AUTO) 0.1 K/uL (0.0-0.2); BASOPHILS % (AUTO) 0.5 % (0.0-2.0); EOSINOPHILS # (AUTO) 0.3 K/uL (0.0-0.4); EOSINOPHILS % (AUTO) 2.7 % (0.0-4.0); HEMATOCRIT 29.8 % (36-54); LYMPHOCYTES # (AUTO) 1.5 K/uL (1.0-5.5); LYMPHOCYTES % (AUTO) 12.3 % (20.5-51.5); MEAN CORPUSCULAR HEMOGLOBIN 30 pg (27-31); MEAN CORPUSCULAR HGB CONC 34 % (32-36); MEAN CORPUSCULAR VOLUME 89 fL (79.0-98.0); MONOCYTES # (AUTO) 0.9 K/uL (0.0-1.0); MONOCYTES % (AUTO) 7.7 % (1.7-9.3); NEUTROPHILS # (AUTO) 9.1 K/uL (1.8-7.7); NEUTROPHILS % (AUTO) 76.8 % (40.0-70.0); PLATELET COUNT (AUTO) 573 K/uL (130-430); RED BLOOD CELL COUNT(AUTO) 3.33 MIL/uL (4.2-6.2); RED CELL DISTRIBUTION WIDTH 15.4 % (9.0-15.0); WHITE BLOOD COUNT (AUTO) 11.9 K/uL (4.8-10.8)
[2020-09-08 08:00] VITALS: BP_SYST 150
[2020-09-08 08:12] LABS: ANION GAP 7 (5-15); CALCIUM 7.8 mg/dL (8.4-11.0); CHLORIDE 102 mmol/L (98-107); CREATININE 0.75 mg/dL (0.55-1.30); GLUCOSE 105 mg/dL (70-99); POTASSIUM 3.6 mmol/L (3.5-5.1); SODIUM SERUM 138 mmol/L (136-145); UREA NITROGEN, BLOOD 9 mg/dL (8-21)
[2020-09-08] MEDS: METOPROLOL TARTRATE 50 MG TABLET PO SCH ×2 (08:26→21:26)
[2020-09-08] MEDS: APIXABAN 2.5 MG TABLET PO SCH ×2 (08:28→21:27)
[2020-09-08] MEDS: INSULIN GLARGINE 100 UNITS/ML 10 ML VIAL SUBCUT SCH (08:31)
[2020-09-08 08:45] LABS: C-REACTIVE PROTEIN QUANT 14.6 mg/dL (0-0.5)
[2020-09-08 08:59] VITALS: BP_SYST 155
[2020-09-08 09:57] LABS: ERYTHROCYTE SEDIMENTATION RATE 102 MM/HR (0-15)
[2020-09-08] MEDS: ERTAPENEM SODIUM 1 GM in NS 50 ML IV SCH (10:45)
[2020-09-08] MEDS: INSULIN REGULAR, HUMAN 100 UNITS/ML, 10 ML VIAL (humuLIN R) SUBCUT PRN ×2 (10:48→21:28)
[2020-09-08 13:25] VITALS: BP_SYST 152
[2020-09-08 17:12] VITALS: BP_SYST 152
[2020-09-08] MEDS: ATORVASTATIN 20 MG TABLET PO SCH (21:26)
[2020-09-08 21:29] VITALS: BP_SYST 122
[2020-09-08] MEDS: hydrALAZINE HCL 10 MG TABLET PO SCH (21:29)
[2020-09-09] VITALS: BP_SYST 165
[2020-09-09] MEDS: IPRATROPIUM BROM 0.5 MG/2.5 ML VIAL.NEB (ATROVENT) INH SCH (03:00)
[2020-09-09] MEDS: ALBUTEROL SULFATE 0.083% 2.5 MG/3 ML VIAL.NEB INH SCH (03:00)
[2020-09-09 04:17] VITALS: BP_SYST 139
[2020-09-09] MEDS: NORMAL SALINE 5 ML DISP.SYRIN IVF SCH ×2 (05:08→14:55)
[2020-09-09] MEDS: hydrALAZINE HCL 10 MG TABLET PO SCH ×2 (06:00→14:58)
[2020-09-09] MEDS ORDERED: hydrALAZINE HCL 10 MG TABLET ONE (06:26)
[2020-09-09] MEDS: DILTIAZEM HCL 30 MG TABLET PO SCH ×2 (06:28→14:57)
[2020-09-09 07:59] LABS: BASOPHILS % (AUTO) 0.4 % (0.0-2.0); EOSINOPHILS # (AUTO) 0.4 K/uL (0.0-0.4); EOSINOPHILS % (AUTO) 3.4 % (0.0-4.0); HEMATOCRIT 27.8 % (36-54); HEMOGLOBIN 9.4 g/dL (14.0-18.0); LYMPHOCYTES # (AUTO) 1.4 K/uL (1.0-5.5); MEAN CORPUSCULAR HEMOGLOBIN 30 pg (27-31); MEAN CORPUSCULAR HGB CONC 34 % (32-36); MEAN CORPUSCULAR VOLUME 89 fL (79.0-98.0); MONOCYTES # (AUTO) 0.8 K/uL (0.0-1.0); MONOCYTES % (AUTO) 7.6 % (1.7-9.3); NEUTROPHILS # (AUTO) 8.3 K/uL (1.8-7.7); NEUTROPHILS % (AUTO) 75.6 % (40.0-70.0); PLATELET COUNT (AUTO) 553 K/uL (130-430); RED BLOOD CELL COUNT(AUTO) 3.12 MIL/uL (4.2-6.2); RED CELL DISTRIBUTION WIDTH 15.2 % (9.0-15.0)
[2020-09-09 08:38] LABS: ANION GAP 4 (5-15); CHLORIDE 101 mmol/L (98-107); CREATININE 0.86 mg/dL (0.55-1.30); GLUCOSE 129 mg/dL (70-99); POTASSIUM 3.8 mmol/L (3.5-5.1); SODIUM SERUM 137 mmol/L (136-145); UREA NITROGEN, BLOOD 9 mg/dL (8-21)
[2020-09-09] MEDS: METOPROLOL TARTRATE 50 MG TABLET PO SCH (09:05)
[2020-09-09] MEDS: APIXABAN 2.5 MG TABLET PO SCH (09:06)
[2020-09-09] MEDS: INSULIN GLARGINE 100 UNITS/ML 10 ML VIAL SUBCUT SCH (09:07)
[2020-09-09 10:41] LABS: ERYTHROCYTE SEDIMENTATION RATE 107 MM/HR (0-15)
[2020-09-09] MEDS: ERTAPENEM SODIUM 1 GM in NS 50 ML IV SCH (11:42)
[2020-09-09] MEDS: INSULIN REGULAR, HUMAN 100 UNITS/ML, 10 ML VIAL (humuLIN R) SUBCUT PRN (11:46)
[2020-09-09 12:24] VITALS: BP_SYST 151
[2020-09-09] MEDS ORDERED: CAR30 PO (12:35)
[2020-09-09] MEDS ORDERED: LIP20 PO (12:35)
[2020-09-09] MEDS ORDERED: ERTA1VIA IJ (12:35)
[2020-09-09] MEDS ORDERED: INSU100V9 SUBCUT (12:35)
[2020-09-09] MEDS ORDERED: HYDR-4037 PO (12:35)
[2020-09-09] MEDS ORDERED: APIX2.5T PO (12:35)
[2020-09-09] MEDS ORDERED: METO-442 PO (12:35)
[2020-09-09 12:52] VITALS: BP_SYST 136
[2020-09-09] MEDS ORDERED: hydrALAZINE HCL 25 MG TABLET ONE (13:32)
[2020-09-09 16:00] VITALS: BP_SYST 145
== END 2020-09-09 16:55 | disposition home health service (06) | DRG 871 ==
LOC: SED 16:44 → STU 20:22 → SIC 08-30 11:43 → STU 08-31 23:02 → SMU 09-01 15:12
PROVIDERS: ADMIT Preventive Medicine Preventive Medicine/Occupational Environmental Medicine; ATTEND Preventive Medicine Preventive Medicine/Occupational Environmental Medicine
PROC: 02HV33Z Insertion of Infusion Device into Superior Vena Cava, Percutaneous Approach (ICD-10-PCS; principal; 2020-09-02)
PROC: B548ZZA Ultrasonography of Superior Vena Cava, Guidance (ICD-10-PCS; 2020-09-02)
DX: A41.50 Gram-negative sepsis, unspecified (principal); E43 Unspecified severe protein-calorie malnutrition; R65.21 Severe sepsis with septic shock; N17.0 Acute kidney failure with tubular necrosis; N39.0 Urinary tract infection, site not specified; Z16.19 Resistance to other specified beta lactam antibiotics; E87.2 Acidosis; Z16.24 Resistance to multiple antibiotics; Z68.41 Body mass index [BMI] 40.0-44.9, adult; E87.1 Hypo-osmolality and hyponatremia; E11.65 Type 2 diabetes mellitus with hyperglycemia; I48.91 Unspecified atrial fibrillation; E83.51 Hypocalcemia; B96.1 Klebsiella pneumoniae [K. pneumoniae] as the cause of diseases classified elsewhere; N18.9 Chronic kidney disease, unspecified; R31.9 Hematuria, unspecified; N40.1 Benign prostatic hyperplasia with lower urinary tract symptoms; I13.10 Hypertensive heart and chronic kidney disease without heart failure, with stage 1 through stage 4 chronic kidney disease, or unspecified chronic kidney disease; R33.8 Other retention of urine; D64.9 Anemia, unspecified; D47.3 Essential (hemorrhagic) thrombocythemia; E88.09 Other disorders of plasma-protein metabolism, not elsewhere classified; Z20.822 Contact with and (suspected) exposure to COVID-19; E11.22 Type 2 diabetes mellitus with diabetic chronic kidney disease; E83.39 Other disorders of phosphorus metabolism; E83.41 Hypermagnesemia; E87.6 Hypokalemia
CPT/HCPCS: 36415; 71045; 76770; 80048; 80053; 82962; 83605; 83735-TC; 84100-TC; 84439; 84443-TC; 84484; 85007; 85025; 85027; 85610-TC; 85651-TC; 85730-TC; 86140; 87040-TC; 93005; 93306; 94760; 96361; 96365; 97110-GP; 97112-GP; 97163; 97530-GP; 99291; C1751; G0378; J0713; J1335; J1644; J1815; J2185; J2405; J3490; J7050; J7060; J7613; U0003

== ENCOUNTER 2020-11-11 16:28 | Emergency (ER) | payer MEDICARE, SELFPAY ==
[~2020-11-11] VITALS: Ht 180.3 cm; Wt 131.5 kg
[~2020-11-11 16:28] MED LIST: APIX2.5T PO; CAR30 PO; ERTA1VIA IJ; HYDR-4037 PO; INSU100V9 SUBCUT; LIP20 PO; METO-442 PO
[2020-11-11 16:39] VITALS: BP_SYST 127
[2020-11-11 17:08] LABS: BASOPHILS # (AUTO) 0.1 K/uL (0.0-0.2); BASOPHILS % (AUTO) 0.6 % (0.0-2.0); EOSINOPHILS # (AUTO) 0.3 K/uL (0.0-0.4); EOSINOPHILS % (AUTO) 2.4 % (0.0-4.0); HEMATOCRIT 33.7 % (36-54); HEMOGLOBIN 10.7 g/dL (14.0-18.0); LYMPHOCYTES # (AUTO) 2.2 K/uL (1.0-5.5); LYMPHOCYTES % (AUTO) 21.1 % (20.5-51.5); MEAN CORPUSCULAR HEMOGLOBIN 27 pg (27-31); MEAN CORPUSCULAR HGB CONC 32 % (32-36); MEAN CORPUSCULAR VOLUME 85 fL (79.0-98.0); MONOCYTES # (AUTO) 1.1 K/uL (0.0-1.0); MONOCYTES % (AUTO) 10.1 % (1.7-9.3); NEUTROPHILS # (AUTO) 6.9 K/uL (1.8-7.7); NEUTROPHILS % (AUTO) 65.8 % (40.0-70.0); PLATELET COUNT (AUTO) 592 K/uL (130-430); RED BLOOD CELL COUNT(AUTO) 3.98 MIL/uL (4.2-6.2); RED CELL DISTRIBUTION WIDTH 18.7 % (9.0-15.0); WHITE BLOOD COUNT (AUTO) 10.4 K/uL (4.8-10.8)
[2020-11-11 17:18] LABS: ANION GAP 7 (5-15); CHLORIDE 100 mmol/L (98-107); POTASSIUM 3.7 mmol/L (3.5-5.1); SODIUM SERUM 137 mmol/L (136-145)
[2020-11-11 17:19] LABS: CALCIUM 8.1 mg/dL (8.4-11.0); CREATININE 0.86 mg/dL (0.55-1.30); GLUCOSE 140 mg/dL (70-99); UREA NITROGEN, BLOOD 5 mg/dL (8-21)
[2020-11-11 17:22] LABS: ALANINE AMINOTRANSFERASE 9 U/L (12-78); ALBUMIN 1.4 g/dL (3.4-4.8); ASPARTATE AMINOTRANSFERASE 26 U/L (10-37); BILIRUBIN,DIRECT 0.1 mg/dL (0.0-0.3); LIPASE 26 U/L (73-393); TOTAL BILIRUBIN 0.4 mg/dL (0.0-1.0)
[2020-11-11] MEDS ORDERED: MEROPENEM 500 MG VIAL IV ONE (17:50)
[2020-11-11] MEDS: MEROPENEM 1 GM IVPB PREMIX 50 ML IV ONE (17:53)
[2020-11-11] MEDS: LR 1,000 ML IV ONE (17:54)
[2020-11-11] MEDS: MAGNESIUM SULFATE 1 GM/2 ML VIAL IV ONE (18:34)
[2020-11-11] MEDS: METOPROLOL TARTRATE 5 MG/5 ML VIAL IVP ONE ×2 (18:34→18:42)
[2020-11-11] MEDS ORDERED: METOPROLOL TARTRATE 25 MG TABLET ONE (18:34)
[2020-11-11] MEDS: METOPROLOL SUCCINATE 50 MG TAB.SR.24H (TOPROL XL) PO ONE (18:36)
[2020-11-11 20:29] VITALS: BP_SYST 11
== END 2020-11-11 20:27 | disposition short-term general hospital (02) ==
LOC: SED 16:28
DX: K82.8 Other specified diseases of gallbladder (principal); C79.51 Secondary malignant neoplasm of bone; I70.90 Unspecified atherosclerosis; J90 Pleural effusion, not elsewhere classified; Z79.899 Other long term (current) drug therapy; Z79.4 Long term (current) use of insulin; Z20.822 Contact with and (suspected) exposure to COVID-19
CPT/HCPCS: 36415; 71045; 74176; 76376; 80048; 80076; 83605; 83690; 83880; 84484; 85025; 87040; 87426; 93005; 96365; 96375; 99291; J2185; J3475; J3490